=== PATIENT | female | born 1950 | race Caucasian/White ===

== ENCOUNTER 2017-02-05 23:50 | Emergency (ER) | payer OTHER ==
[~2017-02-05] VITALS: Ht 160 cm; Wt 102.1 kg
[2017-02-06 00:10] VITALS: BP 120/60
[2017-02-06] MEDS ORDERED: cefTRIAXone SOD 1,000 MG VL IM ONE (01:45)
[2017-02-06] MEDS ORDERED: ACETAMINOPHEN/CODEINE#3 (300/30mg) TAB PO ONE (01:45)
== END 2017-02-06 02:30 | disposition home or self-care (01) ==
LOC: ER 23:53
DX: D17.0 Benign lipomatous neoplasm of skin and subcutaneous tissue of head, face and neck (principal); L03.221 Cellulitis of neck
CPT/HCPCS: 96372; 99283; J0696